=== PATIENT | female | born 1955 | race Caucasian/White ===

== ENCOUNTER 2017-03-19 06:55 | Day surgery (SDC) | payer OTHER ==
[2017-03-19 07:43] VITALS: BMI 30.9
--- NOTE | 2017-03-19 09:38 | CP.SDSHP ---
Same Day Surgery H & P - History Proposed Procedure: EGD Pre-Op Diagnosis: gastric intestinal metaplasia - Allergies Allergies: Allergies iodine Allergy (Verified 03/19/17 07:38) RASH - Physical Exam Vital Signs: Vital Signs 03/19/17 07:05 Temperature 97.8 F Pulse Rate 65 Respiratory 19 Rate Blood Pressure 134/63 O2 Sat by Pulse 100 Oximetry - Impression Impression: see attached H&P.EGD for gastric intestinal metaplasia surveillance Pt. Evaluated Today:Candidate for Anesthesia & Procedure: Yes - Date & Time Date: 03/19/17 Time: 09:40 Short Stay Discharge - Short Stay Discharge Admitting Diagnosis/Reason for Visit: DIVERTICULITIS Disposition: HOME/ ROUTINE
[2017-03-19] MEDS ORDERED: Lactated Ringer's 1,000 ML IV ONE (09:40)
[2017-03-19] MEDS ORDERED: Propofol 10 mg/ml Inj (20 ML) ONE (09:41)
[2017-03-19] MEDS ORDERED: Lidocaine Hydrochloride 5 ML INJ ONE (09:41)
[2017-03-19 10:17] VITALS: TEMP 98.9
[2017-03-19 10:20] VITALS: O2SAT 100
[2017-03-19 10:37] VITALS: BP 132/68; PULSE 69
[2017-03-19 12:26] VITALS: RESP 12
== END 2017-03-19 12:20 | disposition home or self-care (01) ==
LOC: C.ENDO 06:55
PROVIDERS: ATTEND Internal Medicine Gastroenterology
DX: K29.60 Other gastritis without bleeding (principal)
CPT/HCPCS: 43239; 82948; 88305; J2704; J7120